=== PATIENT | male | born 1990 | race Caucasian/White ===

== ENCOUNTER 2020-01-17 13:44 | Emergency (ER) | payer OTHER, SELFPAY ==
[2020-01-17] VITALS (16 sets, daily range): BP systolic 117–136; BP diastolic 65–85; PULSE 72–101; RESP 24; TEMP 36.4; O2SAT 98–100
--- NOTE | 2020-01-17 13:58 | PC.NURSE ---
Avulsed piece of pt's nose placed in gauze wet with saline at patients bedside.
[2020-01-17] MEDS: fentaNYL 100 MCG/2 ML INJ (14:35)
[2020-01-17] MEDS: ONDANSETRON 4 MG/2 ML INJ (14:35)
[2020-01-17] MEDS: LIDOCAINE 1% (PF) 6 ML (14:36)
[2020-01-17] MEDS: BACITRACIN OINT 0.9 GM PCKT 1 APPLIC TOP (15:00)
[2020-01-17] MEDS: HYDROMORPHONE 1 MG INJ (15:20)
--- NOTE | 2020-01-17 16:08 | PC.NURSE ---
Pt arrived via EMS works for an [employer] company based out of [place]. States he was kneeling on the ground and someone who was moving a large piece of auto glass dropped it and it avulsed the top of his L nose, as well as a small LAC to the R forehead and minor superficial scrapes to his R cheek. Bleeding on arrival, uncontrolled and appears to be arterial. pressure applied with 4x4s and Dr Lui made aware. Dr Oneill, ENT called in to repair. Assisted with LAC repair and pressure dressing applied. Pain meds given and pt cleaned with soap and water. Jeanette updated.
[2020-01-17] MEDS: HYDROMORPHONE 1 MG INJ IV (16:25)
[2020-01-17] MEDS: TET,DIPH,PERTUSS(ACELL),VAC/PF 0.5 ML SYRINGE IM (16:26)
[2020-01-17] MEDS: cephALEXin 250 MG CAPSULE 500 MG PO (18:09)
[2020-01-17] MEDS: LIDOCAINE 1% W/EPI 30 ML (18:09)
[2020-01-17] MEDS: ASPIRIN 81 MG CHEW TAB 324 MG PO (18:09)
--- NOTE | 2020-01-17 18:13 | PC.NURSE ---
See previous note for assessment
--- NOTE | 2020-01-17 18:33 | ED.SKABFB ---
HPI - Skin/Abscess/Foreign Bdy General Chief complaint: Skin/Abscess/Foreign Body Stated complaint: Nose Injury/Laceration Time Seen by Provider: 01/17/20 13:50 Source: patient and EMS Mode of arrival: EMS Limitations: no limitations History of Present Illness HPI narrative: Patient here for partial amputation the nose. 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 Also has laceration to the right forehead. As well as abrasion to the parietal scalp on the right patient was wearing glasses. Denies any eye pain or vision loss or any eye complaints. Denies any other injuries patient gives me permission to take a picture of his nose in order to send to Dr. Oneill as well as [facility] no no no identifying cunningham or information sent with picture MD complaint: laceration Related Data Previous Rx's Medication Instructions Recorded cephalexin [Keflex] 500 mg PO TID #21 cap 01/17/20 Allergies Allergy/AdvReac Type Severity Reaction Status Date / Time No Known Drug Allergies Allergy Verified 01/17/20 14:35 Review of Systems Review of Systems Narrative: GENERAL: Denies chills, fatigue, malaise, fever, sweats. HEENT: Denies sinus pain, ear pain, sore throat, difficulty swallowing, dizziness. Denies any vision changes. RESPIRATORY: Denies dyspnea, cough, wheezing, hemoptysis, sputum. CARDIOVASCULAR: Denies chest pain, palpitations, orthopnea, edema, GASTROINTESTINAL: Denies nausea, vomiting, abdominal pain, diarrhea, constipation, melena. : Denies dysuria, frequency, incontinence, hematuria, urinary retention. MUSCULOSKELETAL: denies weakness, joint pain, or bony pain SKIN: Laceration to the face NEUROLOGIC: Denies weakness, headache, numbness, change in speech, confusion, seizures, incoordination. PSYCHIATRIC: No concerning psychosocial issues. ROS Unobtainable: All systems reviewed & are unremarkable except as noted in HPI and below Patient History Social History Smoking Status: Current some day smoker Smoking Status: Current some day smoker alcohol intake frequency: 0-2 drinks per day Substance Use Type: does not use Exam Narrative Exam Narrative: GENERAL: patient appears stated age. Well-nourished, well-developed patient, in mild distress, not toxic, shirt is off HEAD: Abrasion to the right parietal scalp. Not bleeding. 2 cm linear subcutaneous laceration horizontally right forehead. EYES: Pupils equal round and reactive. Extraocular motions intact. No scleral icterus. No injection or drainage. ENT: Airway is patent. There is partial amputation at the tip and bridge of the nose. Nasal bone visualized. There is arterial bleed present. Applied Gelfoam as well as pressure dressing. ENT, Dr. Oneill immediately paged and he is coming to bedside to assist NECK: Trachea midline. Non tender CARDIOVASCULAR: Regular rate and rhythm without murmurs, gallops, or rubs. RESPIRATORY: Clear to auscultation. Breath sounds equal bilaterally. No wheezes, rales, or rhonchi. GASTROINTESTINAL: Abdomen soft, non-tender, nondistended. EXTREMITIES: No edema or joint tenderness. BACK: Nontender without deformity or crepitance. No flank tenderness. NEURO: AOx3. SKIN: No rash or erythema of visible areas PSYCH: Not anxious, is cooperative Initial Vital Signs Initial Vital Signs: Vital Signs Temperature 97.6 F 01/17/20 13:45 Pulse Rate 99 H 01/17/20 13:45 Respiratory Rate 24 01/17/20 13:45 Blood Pressure 130/65 01/17/20 13:45 Pulse Oximetry 99 01/17/20 13:45 Procedures Laceration Repair Right forehead: Site: other (Forehead) Side (If applicable): right Size (cm): 2 Description: linear Depth: simple, single layer Local Anesthetic: lidocaine 1% and with epi Amount of anesthesia used (mL): 2 Pre-repair: wound explored and irrigated extensively Skin layer closed with: nylon Size (cm): 4-0 Number of sutures: 4 Technique: simple, interrupted Course Orders Ordered: Discontinued Medications Aspirin (Aspirin Chew) 324 mg PO NOW ONE Stop: 01/17/20 18:05 Last Admin: 01/17/20 18:09 Dose: 324 mg Documented by: LOVE Bacitracin (Bacitracin) 1 applic TOP NOW ONE Stop: 01/17/20 15:10 Last Admin: 01/17/20 15:00 Dose: 1 applic Documented by: LOVE Cephalexin HCl (Keflex) 500 mg PO NOW ONE Stop: 01/17/20 18:05 Last Admin: 01/17/20 18:09 Dose: 500 mg Documented by: LOVE Diphtheria/Tetanus/Acell Pertussis (Adacel) 0.5 ml IM .ONCE ONE Stop: 01/17/20 16:17 Last Admin: 01/17/20 16:26 Dose: 0.5 ml Documented by: LOVE Hydromorphone HCl (Dilaudid) 1 mg IV NOW ONE Stop: 01/17/20 16:17 Last Admin: 01/17/20 16:25 Dose: 1 mg Documented by: LOVE Reevaluation(s) Reevaluation #1: At time of discharge no nasal bleeding.. Consultations Consultation #1: Spoke with Dr. Pablo Oneill, ENT, he is on location, he will come to the ER to assist with this from suturing of the nose and hemostasis Time: 14:35 Consultation #2: Mid spoke with Dr. Osborne ENT with a [facility], the patient to be treated with aspirin daily and Keflex. The ER was able for assistive 3 the skin does not heal. their specialist Dr. Olivia and Dr. Coyle can see patient. phone number [phone] Time: 17:43 Vital Signs Vital signs: Vital Signs - 8 hr 01/17/20 13:45 01/17/20 14:27 01/17/20 14:30 Temperature 97.6 F Pulse Rate 99 H 92 H 92 H Respiratory Rate 24 Blood Pressure 130/65 131/84 136/82 Pulse Oximetry 99 100 100 01/17/20 14:40 01/17/20 14:50 01/17/20 15:00 Temperature Pulse Rate 84 80 79 Respiratory Rate Blood Pressure 117/68 120/68 123/71 Pulse Oximetry 100 98 100 01/17/20 15:10 01/17/20 15:20 01/17/20 15:30 Temperature Pulse Rate 77 76 83 Respiratory Rate Blood Pressure 123/74 132/79 129/82 Pulse Oximetry 100 100 100 01/17/20 15:40 01/17/20 15:50 01/17/20 16:00 Temperature Pulse Rate 79 79 75 Respiratory Rate Blood Pressure 126/82 124/71 133/74 Pulse Oximetry 100 100 100 01/17/20 16:10 01/17/20 16:20 01/17/20 16:30 Temperature Pulse Rate 72 81 94 H Respiratory Rate Blood Pressure 130/79 135/83 135/85 Pulse Oximetry 99 99 100 01/17/20 16:41 Temperature Pulse Rate 101 H Respiratory Rate Blood Pressure 123/80 Pulse Oximetry 100 MDM - Skin/Abscess/Foreign Bdy MDM Narrative Medical decision making narrative: No imaging or is labs indicating. Wounds visualized explored. Bases visualized. No foreign body seen Discharge Plan Departure Patient Disposition: Home Clinical Impression: Partial traumatic amputation of nose Qualifiers: Encounter type: initial encounter Qualified Code(s): S08.812A - Partial traumatic amputation of nose, initial encounter Forehead laceration Qualifiers: Encounter type: initial encounter Qualified Code(s): S01.81XA - Laceration without foreign body of other part of head, initial encounter Discharge Date/Time: 01/17/20 18:14 Instructions: DI for Laceration Repair Activity Restrictions/Additional Instructions: See Dr. Oneill as instructed for recheck of stitches in your nose as well as removal of 4 stitches on your forehead. Change dressing twice a day warm soap and water and then topical antibiotic. [facility] are able to assist with Dr. Oneill, phone number is [phone]. Provider [address] Dr. Olivia and Dr. Coyle. Return if worse or if any questions or concerns. Take 1 aspirin, 325 mg each day. Antibiotic prescription has been sent to your [facility] Prescriptions: New cephalexin [Keflex] 500 mg capsule 500 mg PO TID Qty: 21 RF: 0 Referrals: Pablo Oneill MD [Physician] -
--- NOTE | 2020-01-18 03:39 | CONS_ITS ---
DATE OF SERVICE: 01/17/2020 Otolaryngology consult as well as operative note. CHIEF COMPLAINT: Traumatic partial nasal avulsion. HISTORY OF PRESENT ILLNESS: A 30-year-old male, otherwise healthy, was inadvertently struck by a piece of shattering glass which transected a portion of his left inferior nose. There was significant arterial bleeding and I was consulted to come emergently to the [facility] emergency room by Dr. Abdias Lui to control the bleeding. The patient was able to salvage the transected portion of his nose which was wrapped in saline upon arrival evidently. He denies any other prior ear, nose, and throat complaints. PAST MEDICAL HISTORY: Reviewed on the nursing notes. MEDICATIONS: Reviewed on the nursing notes. ALLERGIES: REVIEWED ON THE NURSING NOTES. SOCIAL HISTORY: Reviewed on the nursing notes. REVIEW OF SYSTEMS: Reviewed on the nursing notes. FAMILY HISTORY: Reviewed on the nursing notes. OBJECTIVE: Vital signs on the chart. Well-developed, well-nourished male in obvious pain, holding pressure over the nose, but with persistent bleeding despite Surgicel and overlying gauze. He is normocephalic with a laceration of the right forehead to be repaired later by the emergency room physician. The oblong, nearly spherical defect of the left nasal tip, dorsum, and sidewall extends almost to the alar rim and measures approximately 23 mm x 16 mm and extends to involve a portion of the left lower lateral cartilage including the dome. Wound edges are clean and slightly tangential with brisk arterial bleeding, primarily medially, but other smaller areas throughout the wound bed. No obvious intranasal extension. Otherwise, external exam grossly normal. PROCEDURE: Intermediate repair traumatic avulsion injury left nasal tip, sidewall. Following verbal consent, the temporary packing was removed and I infiltrated the wound bed and wound edges multiple times with 1% lidocaine. NO EPINEPHRINE was utilized to allow adequate blood flow for the free graft. A portion of cartilage on the free graft needed to be removed, but otherwise represented a thick full-thickness skin graft. There was no other tissue loss noted. Suction electrocautery on a setting of 10 was utilized for hemostasis of the bleeding areas including the primary arterial bleeding from medially. The wound was irrigated with Betadine and the free graft piece of avulsed tissue had been stored in saline. This was cleansed with Betadine as well. The graft was sewn in in a single layer to the defect peripherally with interrupted 5-0 and 6-0 nylon sutures. A pressure bolster dressing was placed with Telfa and paper tape. He tolerated the procedure well without known complication. ASSESSMENT: Partial avulsion, partial thickness injury of the left nasal tip and sidewall measuring 23 x 16 mm including a portion of the left lower lateral cartilage/dome. PLAN: The free avulsed tissue was replaced. We hope for revascularization peripherally and deep, but it may need to act as a biologic dressing. We will see what portion of healing and graft take there is before considering more extensive reconstruction if necessary. [facility] will be contacted by the ER physician to see if aspirin or other anticoagulant would be recommended. The patient will follow up with me in one week or sooner with concerns. Keep the dressing in place. Otherwise keep Vaseline or antibiotic ointment on at all times. The patient agrees with the plan, understands, and is appreciative. Betito Silva - SANIYA/quita/REBECCA doc#: [id number]/job#: [id number] dd: 01/17/2020 17:08:00 dt: 01/18/2020 03:21:00 DICTATING MD/COPIES TO: Pablo Oneill MD; primary care physician COPIES MNE: MARIA ELENA; ; primary care physician
== END 2020-01-17 18:14 | disposition home or self-care (01) ==
PROVIDERS: Emergency Provider Emergency Medicine
DX: S08.812A Partial traumatic amputation of nose, initial encounter (principal); S00.01XA Abrasion of scalp, initial encounter; W25.XXXA Contact with sharp glass, initial encounter; Y99.0 Civilian activity done for income or pay; Z23 Encounter for immunization
CPT/HCPCS: 12011; 90471; 96374; 96375; 99284; 90715; J1170; J2405; J3010